=== PATIENT | female | born 1970 | race Hispanic/Latino ===

== ENCOUNTER 2017-09-20 08:25 | Outpatient (CLI) | payer BC | END 2017-09-20 08:26 | disposition home or self-care (01) | LOC: BICMAMMO 08:25 | PROVIDERS: ATTEND Family Medicine | DX: Z12.31 Encounter for screening mammogram for malignant neoplasm of breast (principal) | CPT/HCPCS: 77063; 77067 ==

== ENCOUNTER 2020-04-10 10:49 | Emergency (ER) | payer OTHER ==
[2020-04-11 14:48] LABS: SARS-CoV-2 MS2 Positive; SARS-CoV-2 N Gene Negative; SARS-CoV-2 S Gene Negative; SARS-CoV-2 by NAA Not Detected (NotDetected); SARS-CoV-2 orf1ab Negative
== END 2020-04-10 11:26 | disposition home or self-care (01) ==
LOC: ERS 10:49
DX: Z20.828 Contact with and (suspected) exposure to other viral communicable diseases (principal)
CPT/HCPCS: 87635; 99283; U0003

== ENCOUNTER 2020-04-14 10:16 | Outpatient (CLI) | payer OTHER ==
--- NOTE | 2020-04-14 11:19 | RAD ---
Barium swallow air contrast HISTORY: Dysphagia. FINDINGS: Air contrast and single column barium evaluation shows a very small sliding hiatal hernia. There is decrease in primary and secondary peristalsis. Moderate amount of reflux of oral contrast into the esophagus. There are nonpropulsive tertiary type contractions. A 12 mm barium tablet traversed the esophagus without holdup. No focal mass, stricture, or obstructio n. IMPRESSION : Small sliding hiatal hernia with moderate amount of gastroesophageal reflux. Resultant tertiary contr actions of the esophagus. No evidence of obstruction.
== END 2020-04-14 10:17 | disposition home or self-care (01) ==
LOC: RAD 10:16
PROVIDERS: ATTEND Specialist
DX: K21.9 Gastro-esophageal reflux disease without esophagitis (principal); K44.9 Diaphragmatic hernia without obstruction or gangrene
CPT/HCPCS: 74220

== ENCOUNTER 2021-05-25 22:40 | Inpatient (IN) | payer OTHER ==
[2021-05-26 01:49] VITALS: BMI 43.2
[2021-05-26] MEDS ORDERED: Acetaminophen 325 MG TAB PO PRN (09:44)
[2021-05-26] MEDS ORDERED: Bisacodyl 5 MG TAB PO PRN (09:44)
[2021-05-26] MEDS ORDERED: Calcium Carbonate 500 MG ChewTAB PO PRN (09:44)
[2021-05-26] MEDS ORDERED: Senokot S 8.6-50 MG TAB PO PRN (09:44)
[2021-05-26] MEDS ORDERED: Ondansetron ODT 4 MG TAB PO PRN (09:44)
[2021-05-26] MEDS ORDERED: Ondansetron PF 4 MG/2 ML Vial IVP PRN (09:44)
[2021-05-26] MEDS ORDERED: Enoxaparin Sodium 40 MG/0.4 ML SYRINGE SC SCH (09:45)
[2021-05-26] MEDS ORDERED: Benzonatate 100 MG CAP PO PRN (09:46)
[2021-05-26] MEDS: Doxycycline 100 MG CAP PO SCH ×2 (14:39→20:55)
[2021-05-26] MEDS: Dexamethasone 4 mg/ml Vial SLOW IVP SCH (14:39)
[2021-05-26] MEDS: cefTRIAXone\\ROCEPHIN 1 GM in Sodium Chloride 0.9% 100 ML IVPB SCH (15:54)
[2021-05-26 18:30] LABS: Hemoglobin A1c 6.7 % (4.0-6.0)
[2021-05-26 18:56] LABS: #Lymphocytes 0.5 thou/uL (1.20-3.40); #Monocytes 0.2 thou/uL (0.11-0.59); #Neutrophils 3.4 thou/uL (1.40-6.50); %Eosinophils 0.1 % (0.0-10.0); %Lymphocytes 12.9 % (21.0-51.0); %Monocytes 4.4 % (0.0-10.0); %Neutrophils 82.6 % (42.0-75.0); Hemoglobin 10.6 g/dL (12.0-16.0); Mean Corpuscular HGB CONC 30.6 g/dL (32.0-36.0); Mean Corpuscular Hemoglobin 21.7 pg (27.0-31.0); Mean Platelet Volume 8.8 fL (7.4-10.4); Platelet Count 345 thou/uL (130-400); RBC Distribution Width 16.1 % (11.5-14.5); Red Blood Cell (RBC) Count 4.87 mill/uL (4.20-5.40); White Blood Cell (WBC) Count 4.1 thou/uL (4.8-10.8)
[2021-05-26 19:07] LABS: Hypochromia SLIGHT = 6-15 cells (100X) (0-5/hpf); MDiff Complete? YES; Microcytosis SLIGHT = 6-15 cells (100X) (0-5/hpf); Platelet Morphology Comment Appears Adequate
[2021-05-26 19:35] LABS: ALT (SGPT) 25 U/L (8-55); AST (SGOT) 43 U/L (5-34); Albumin 3.6 g/dL (3.5-5.0); Alkaline Phosphatase 73 U/L (40-110); Anion Gap 15 mmol/L (10-20); BUN (Urea Nitrogen) 13 mg/dL (7.0-18.7); Bilirubin, Total 0.2 mg/dL (0.2-1.2); CRP (Inflammatory) 5.19 mg/dL (= or < 0.5); Calc. Creatinine Clearance 108 mL/min (70-130); Calcium 9.4 mg/dL (7.8-10.44); Carbon Dioxide 23 mmol/L (22-29); Chloride 103 mmol/L (98-107); Globulin 3.7 g/dL (2.4-3.5); Glucose 269 mg/dL (70-105); Potassium 4.3 mmol/L (3.5-5.1); Protein, Total 7.3 g/dL (6.0-8.3); Sodium 137 mmol/L (136-145)
[2021-05-26] MEDS ORDERED: REMDESIVIR 200 MG in Sodium Chloride 0.9% 250 ML 210 ML IV SCH (20:00)
[2021-05-26] MEDS: Famotidine/PF 20 mg/2ml Vial SLOW IVP SCH (20:55)
[2021-05-27] MEDS: Dexamethasone 4 mg/ml Vial SLOW IVP SCH (09:05)
[2021-05-27] MEDS: Doxycycline 100 MG CAP PO SCH ×2 (09:08→20:55)
[2021-05-27] MEDS: Famotidine/PF 20 mg/2ml Vial SLOW IVP SCH ×2 (09:08→20:56)
[2021-05-27] MEDS: Enoxaparin Sodium 40 MG/0.4 ML SYRINGE SC SCH (09:09)
[2021-05-27] MEDS: cefTRIAXone\\ROCEPHIN 1 GM in Sodium Chloride 0.9% 100 ML IVPB SCH (17:55)
[2021-05-27] MEDS: REMDESIVIR 100 MG in Sodium Chloride 0.9% 250 ML 230 ML IV SCH (20:55)
[2021-05-28 05:01] LABS: #Lymphocytes 0.9 thou/uL (1.20-3.40); #Monocytes 0.6 thou/uL (0.11-0.59); %Basophils 0.2 % (0.0-1.0); %Eosinophils 0.1 % (0.0-10.0); %Lymphocytes 10.9 % (21.0-51.0); %Monocytes 7.1 % (0.0-10.0); %Neutrophils 81.8 % (42.0-75.0); Hemoglobin 10.4 g/dL (12.0-16.0); Mean Corpuscular HGB CONC 31.1 g/dL (32.0-36.0); Mean Corpuscular Hemoglobin 22.1 pg (27.0-31.0); Mean Corpuscular Volume 71.2 fL (78.0-98.0); Mean Platelet Volume 8.7 fL (7.4-10.4); Platelet Count 407 thou/uL (130-400); Red Blood Cell (RBC) Count 4.69 mill/uL (4.20-5.40); White Blood Cell (WBC) Count 8.5 thou/uL (4.8-10.8)
[2021-05-28 05:23] LABS: Anion Gap 14 mmol/L (10-20); BUN (Urea Nitrogen) 15 mg/dL (7.0-18.7); CRP (Inflammatory) 1.49 mg/dL (= or < 0.5); Calc. Creatinine Clearance 118 mL/min (70-130); Calcium 8.8 mg/dL (7.8-10.44); Carbon Dioxide 24 mmol/L (22-29); Chloride 105 mmol/L (98-107); Glucose 313 mg/dL (70-105); Potassium 4.5 mmol/L (3.5-5.1); Sodium 138 mmol/L (136-145)
[2021-05-28] MEDS: HumaLOG 300 UNITS/3 ML VIAL SC PRN (06:20)
[2021-05-28] MEDS: Citalopram 20 MG TAB PO SCH (09:09)
[2021-05-28] MEDS: Enoxaparin Sodium 40 MG/0.4 ML SYRINGE SC SCH (09:09)
[2021-05-28] MEDS: Doxycycline 100 MG CAP PO SCH ×2 (09:09→21:10)
[2021-05-28] MEDS: Dexamethasone 4 mg/ml Vial SLOW IVP SCH (09:10)
[2021-05-28] MEDS: Famotidine/PF 20 mg/2ml Vial SLOW IVP SCH ×2 (09:10→21:10)
[2021-05-28] MEDS: cefTRIAXone\\ROCEPHIN 1 GM in Sodium Chloride 0.9% 100 ML IVPB SCH (17:34)
[2021-05-28] MEDS: guaiFENesin 200 MG TAB PO PRN (21:10)
[2021-05-28] MEDS: REMDESIVIR 100 MG in Sodium Chloride 0.9% 250 ML 230 ML IV SCH (21:10)
[2021-05-29] MEDS: Doxycycline 100 MG CAP PO SCH ×2 (08:14→21:28)
[2021-05-29] MEDS: Dexamethasone 4 mg/ml Vial SLOW IVP SCH (08:15)
[2021-05-29] MEDS: Enoxaparin Sodium 40 MG/0.4 ML SYRINGE SC SCH (08:15)
[2021-05-29] MEDS: Famotidine/PF 20 mg/2ml Vial SLOW IVP SCH ×2 (08:15→21:28)
[2021-05-29] MEDS: Citalopram 20 MG TAB PO SCH (08:15)
[2021-05-29] MEDS: Levothyroxine Sodium 100 MCG TAB PO SCH (08:16)
[2021-05-29] MEDS: Lantus 1000 UNITS/10 ML VIAL SC SCH (11:15)
[2021-05-29] MEDS: cefTRIAXone\\ROCEPHIN 1 GM in Sodium Chloride 0.9% 100 ML IVPB SCH (13:24)
[2021-05-29] MEDS: HumaLOG 300 UNITS/3 ML VIAL SC PRN ×2 (17:42→21:29)
[2021-05-29 17:50] LABS: #Lymphocytes 0.8 thou/uL (1.20-3.40); #Monocytes 0.5 thou/uL (0.11-0.59); %Eosinophils 0.3 % (0.0-10.0); %Lymphocytes 12.2 % (21.0-51.0); %Monocytes 8.4 % (0.0-10.0); %Neutrophils 79.1 % (42.0-75.0); Hemoglobin 11.5 g/dL (12.0-16.0); Mean Corpuscular HGB CONC 31.5 g/dL (32.0-36.0); Mean Corpuscular Hemoglobin 22.5 pg (27.0-31.0); Mean Corpuscular Volume 71.2 fL (78.0-98.0); Mean Platelet Volume 8.5 fL (7.4-10.4); Platelet Count 459 thou/uL (130-400); RBC Distribution Width 16.3 % (11.5-14.5); Red Blood Cell (RBC) Count 5.13 mill/uL (4.20-5.40); White Blood Cell (WBC) Count 6.4 thou/uL (4.8-10.8)
[2021-05-29 18:17] LABS: Anion Gap 14 mmol/L (10-20); BUN (Urea Nitrogen) 14 mg/dL (7.0-18.7); CRP (Inflammatory) 0.59 mg/dL (= or < 0.5); Calc. Creatinine Clearance 120 mL/min (70-130); Calcium 8.8 mg/dL (7.8-10.44); Carbon Dioxide 27 mmol/L (22-29); Chloride 105 mmol/L (98-107); Glucose 251 mg/dL (70-105); Potassium 4.5 mmol/L (3.5-5.1); Sodium 141 mmol/L (136-145)
[2021-05-29] MEDS: REMDESIVIR 100 MG in Sodium Chloride 0.9% 250 ML 230 ML IV SCH (21:29)
[2021-05-29] MEDS: guaiFENesin 200 MG TAB PO PRN (21:37)
[2021-05-30 05:35] LABS: #Lymphocytes 1.4 thou/uL (1.20-3.40); #Monocytes 0.8 thou/uL (0.11-0.59); #Neutrophils 3.8 thou/uL (1.40-6.50); %Basophils 0.5 % (0.0-1.0); %Eosinophils 0.4 % (0.0-10.0); %Lymphocytes 23.1 % (21.0-51.0); Hemoglobin 10.7 g/dL (12.0-16.0); Mean Corpuscular HGB CONC 30.2 g/dL (32.0-36.0); Mean Corpuscular Hemoglobin 21.4 pg (27.0-31.0); Mean Corpuscular Volume 70.7 fL (78.0-98.0); Platelet Count 474 thou/uL (130-400); RBC Distribution Width 15.7 % (11.5-14.5); White Blood Cell (WBC) Count 6.1 thou/uL (4.8-10.8)
[2021-05-30 06:00] LABS: Anion Gap 11 mmol/L (10-20); BUN (Urea Nitrogen) 13 mg/dL (7.0-18.7); CRP (Inflammatory) Less than 0.50 mg/dL (= or < 0.5); Calc. Creatinine Clearance 136 mL/min (70-130); Calcium 8.7 mg/dL (7.8-10.44); Carbon Dioxide 29 mmol/L (22-29); Chloride 104 mmol/L (98-107); Glucose 141 mg/dL (70-105); Potassium 4.1 mmol/L (3.5-5.1); Sodium 140 mmol/L (136-145)
[2021-05-30] MEDS: Levothyroxine Sodium 100 MCG TAB PO SCH (06:17)
[2021-05-30] MEDS: Citalopram 20 MG TAB PO SCH (08:46)
[2021-05-30] MEDS: Enoxaparin Sodium 40 MG/0.4 ML SYRINGE SC SCH (08:46)
[2021-05-30] MEDS: Famotidine/PF 20 mg/2ml Vial SLOW IVP SCH ×2 (08:46→20:52)
[2021-05-30] MEDS: Doxycycline 100 MG CAP PO SCH ×2 (08:46→20:52)
[2021-05-30] MEDS: Dexamethasone 4 mg/ml Vial SLOW IVP SCH (08:47)
[2021-05-30] MEDS: Lantus 1000 UNITS/10 ML VIAL SC SCH (08:53)
[2021-05-30] MEDS: cefTRIAXone\\ROCEPHIN 1 GM in Sodium Chloride 0.9% 100 ML IVPB SCH (13:14)
[2021-05-30] MEDS: HumaLOG 300 UNITS/3 ML VIAL SC PRN ×2 (15:39→21:01)
[2021-05-30] MEDS: REMDESIVIR 100 MG in Sodium Chloride 0.9% 250 ML 230 ML IV SCH (20:52)
[2021-05-31] MEDS: Levothyroxine Sodium 100 MCG TAB PO SCH (05:36)
[2021-05-31] MEDS: Enoxaparin Sodium 40 MG/0.4 ML SYRINGE SC SCH (08:33)
[2021-05-31] MEDS: Doxycycline 100 MG CAP PO SCH (08:33)
[2021-05-31] MEDS: Citalopram 20 MG TAB PO SCH (08:34)
[2021-05-31] MEDS: Dexamethasone 4 mg/ml Vial SLOW IVP SCH (08:34)
[2021-05-31] MEDS: Lantus 1000 UNITS/10 ML VIAL SC SCH (08:35)
[2021-05-31] MEDS: Famotidine/PF 20 mg/2ml Vial SLOW IVP SCH (08:35)
[2021-05-31 11:38] VITALS: BP 127/65; TEMP 98.3
[2021-05-31] MEDS: cefTRIAXone\\ROCEPHIN 1 GM in Sodium Chloride 0.9% 100 ML IVPB SCH (15:41)
== END 2021-05-31 16:15 | disposition home or self-care (01) | DRG 177 ==
LOC: 2SE 22:40 → OBSVTOIN 05-26 05:55
PROVIDERS: ADMIT Student in an Organized Health Care Education/Training Program; ATTEND Internal Medicine
PROC: 3E0333Z Introduction of Anti-inflammatory into Peripheral Vein, Percutaneous Approach (ICD-10-PCS; principal; 2021-05-26)
PROC: XW033E5 Introduction of Remdesivir Anti-infective into Peripheral Vein, Percutaneous Approach, New Technology Group 5 (ICD-10-PCS; 2021-05-26)
DX: U07.1 COVID-19 (principal); J96.01 Acute respiratory failure with hypoxia; J12.82 Pneumonia due to coronavirus disease 2019; Z68.41 Body mass index [BMI] 40.0-44.9, adult; F32.9 Major depressive disorder, single episode, unspecified; F90.9 Attention-deficit hyperactivity disorder, unspecified type; E03.9 Hypothyroidism, unspecified; K21.9 Gastro-esophageal reflux disease without esophagitis; E66.01 Morbid (severe) obesity due to excess calories; E11.65 Type 2 diabetes mellitus with hyperglycemia; F41.9 Anxiety disorder, unspecified; Z79.890 Hormone replacement therapy; Z79.899 Other long term (current) drug therapy; Z90.49 Acquired absence of other specified parts of digestive tract; Z80.9 Family history of malignant neoplasm, unspecified
CPT/HCPCS: 36415; 36416; 71046; 71260; 80048; 80053; 83036; 85025; 85379; 86140; J0696; J1100; J1650; J1815; J3490; J7050; S0028

== ENCOUNTER 2021-07-01 08:49 | Outpatient (CLI) | payer OTHER | END 2021-07-01 08:50 | disposition home or self-care (01) | LOC: BICRAD 08:49 | PROVIDERS: ATTEND Physician Assistant | DX: U07.1 COVID-19 (principal); J12.82 Pneumonia due to coronavirus disease 2019 | CPT/HCPCS: 71046 ==